=== PATIENT | female | born 1960 | race Caucasian/White ===

== ENCOUNTER 2020-02-26 14:52 | Emergency (ER) | payer SELFPAY ==
--- NOTE | 2020-02-26 15:06 | ER Document Report ---
ED Medical Screen (RME) - General Chief Complaint: Insect Bite Stated Complaint: INSECT BITE Time Seen by Provider: 02/26/20 15:00 Mode of Arrival: Ambulatory Information source: Patient Notes: Patient presents complaining of right ankle swelling for the past month. Patient states that she has had some discomfort to the lower leg that radiates to the medial right thigh. Patient denies any injury or fever. Patient does not go to a doctor regularly. I have greeted and performed a rapid initial assessment of this patient. A comprehensive ED assessment and evaluation of the patient, analysis of test results and completion of the medical decision making process will be conducted by additional ED providers. TRAVEL OUTSIDE OF THE [place] IN LAST 30 DAYS: No - Related Data Allergies/Adverse Reactions: Penicillins Allergy (Verified 07/19/15 08:40) Past Medical History Pulmonary Medical History: Reports: Hx Asthma, Hx COPD Traumatic Medical History: Reports: Hx Fractures - right foot Past Surgical History: Reports: Hx Gynecologic Surgery - vuvarectomy with reconstruction 10 years ago, Hx Orthopedic Surgery, Hx Tubal Ligation - Immunizations Immunizations up to date: Yes Hx Diphtheria, Pertussis, Tetanus Vaccination: Yes Physical Exam - Vital signs Vitals: Temp Pulse Resp BP Pulse Ox 98.3 F 82 16 153/66 H 100 02/26/20 14:58 02/26/20 14:58 02/26/20 14:58 02/26/20 14:58 02/26/20 14:58 - Extremities General lower extremity: Tender, Edema - Right ankle swelling Course - Vital Signs Vital signs: Temp Pulse Resp BP Pulse Ox 98.3 F 82 16 153/66 H 100 02/26/20 14:58 02/26/20 14:58 02/26/20 14:58 02/26/20 14:58 02/26/20 14:58
[2020-02-26 15:29] LABS: ABSOLUTE BASOPHILS # (AUTO) 0.1 10^3/uL (0.0-0.2); ABSOLUTE EOSINOPHILS # (AUTO) 0.2 10^3/uL (0.0-0.6); ABSOLUTE LYMPHOCYTES (AUTO) 3.8 10^3/uL (0.5-4.7); ABSOLUTE MONOCYTES (AUTO) 1.1 10^3/uL (0.1-1.4); ABSOLUTE NEUT (AUTO) 6.1 10^3/uL (1.7-8.2); BASOPHILS % (AUTO) 0.7 % (0-2); HEMATOCRIT 44.2 % (36.0-47.0); LYMPHOCYTES % (AUTO) 33.8 % (13-45); MEAN CORPUSCULAR HGB CONC 33.9 g/dL (32.0-36.0); MEAN CORPUSCULAR VOLUME 86 fl (80-97); MONOCYTES % (AUTO) 9.4 % (3-13); PLATELET COUNT 252 10^3/uL (150-450); RED BLOOD COUNT 5.16 10^6/uL (3.72-5.28); RED CELL DISTRIBUTION WIDTH 14.4 % (11.5-14.0); SEGMENTED NEUTROPHILS % (AUTO) 54.1 % (42-78); TOTAL CELLS COUNTED % (AUTO) 100 %; WHITE BLOOD COUNT 11.3 10^3/uL (4.0-10.5)
[2020-02-26 15:38] LABS: ALBUMIN 4.5 g/dL (3.5-5.0); ALKALINE PHOSPHATASE 75 U/L (38-126); ANION GAP 10 (5-19); ASPARTATE AMINO TRANSFERASE 22 U/L (14-36); BILIRUBIN,DIRECT 0.4 mg/dL (0.0-0.4); BILIRUBIN,TOTAL 0.4 mg/dL (0.2-1.3); BLOOD UREA NITROGEN 19 mg/dL (7-20); CALCIUM 9.5 mg/dL (8.4-10.2); CARBON DIOXIDE 27 mmol/L (22-30); CHLORIDE 104 mmol/L (98-107); GLUCOSE 101 mg/dL (75-110); POTASSIUM 4.1 mmol/L (3.6-5.0); TOTAL PROTEIN 7.5 g/dL (6.3-8.2)
--- NOTE | 2020-02-26 15:42 | RADIOLOGY REPORT (SQ) ---
EXAM DESCRIPTION: FOOT RIGHT COMPLETE IMAGES COMPLETED DATE/TIME: 02/26/2020 3:20 pm REASON FOR STUDY: right ankle swelling, heel pain COMPARISON: None. NUMBER OF VIEWS: Three views. TECHNIQUE: AP, lateral and oblique without weight bearing radiographic images acquired of the right foot. LIMITATIONS: None. FINDINGS: MINERALIZATION: Normal. BONES: A curvilinear sclerotic line along the posterior calcaneus is present representing a stress fr acture. No worrisome bone lesions. No significant osteophytes. 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 JOINTS: No erosions. No machelle-articular osteopenia. No chondrocalcinosis. SOFT TISSUES: No swelling. No calcifications. OTHER: No other significant finding. IMPRESSION: Calcaneal stress fracture. TECHNICAL DOCUMENTATION: JOB ID: [id number] 2010 [employer]- All Rights Reserved Reading location - IP/workstation name: [email or web address]
--- NOTE | 2020-02-26 18:32 | RADIOLOGY REPORT (SQ) ---
EXAM DESCRIPTION: VENOUS UNILATERAL LOWER IMAGES COMPLETED DATE/TIME: 02/26/2020 6:10 pm REASON FOR STUDY: RLE pain, ankle swelling COMPARISON: None. TECHNIQUE: Dynamic and static holt scale and color images acquired of the right leg venous system. S elected spectral images acquired with additional compression and augmentation maneuvers. The contrala teral common femoral vein and saphenofemoral junction were also imaged. Images stored on PACS. LIMITATIONS: None. FINDINGS: COMMON FEMORAL: Normal phasicity, compression and augmentation. No visualized echogenic ma terial on holt scale. No defects on color images. FEMORAL: Normal compression and augmentation. No visualized echogenic material on holt scale. No defe cts on color images. POPLITEAL: Normal compression, augmentation. No visualized echogenic material on holt scale. No defec ts on color images. CALF VESSELS: Normal compression, augmentation. No visualized echogenic material on holt scale. No de fects on color images. GSV and SSV: Normal compression, augmentation. No visualized echogenic material on holt scale. No def ects on color images. ANY DEEP VENOUS INSUFFICIENCY: Not evaluated. ANY EVIDENCE OF POPLITEAL CYST: No. OTHER: No other significant finding. CONTRALATERAL COMMON FEMORAL VEIN AND SAPHENOFEMORAL JUNCTION: Normal phasicity, compression and augmentation. No visualized echogenic material on holt scale. No de fects on color images. IMPRESSION: NO EVIDENCE DVT OR SVT IN THE RIGHT LEG. TECHNICAL DOCUMENTATION: JOB ID: [id number] [address]- All Rights Reserved Reading location - IP/workstation name: [email or web address]
[2020-02-26] MEDS ORDERED: HYDROCODONE/ACETAMINOPHEN 5-325 MG (6 TAB/ER DISP) PO PRN (19:30)
--- NOTE | 2020-02-26 19:32 | ER Document Report ---
HPI - HPI Patient complains to provider of: foot pain/swelling Time Seen by Provider: 02/26/20 15:00 Onset/Duration: Persistent Quality of pain: Achy Pain Level: 1 Context: Patient presents complaining of right foot and ankle pain and swelling for the past month. Patient denies any injury. Patient states that the pain is starting to radiate into the lower calf. Patient denies any chest pain or shortness of breath. Associated Symptoms: Other. denies: Fever Exacerbated by: Movement, Walking Relieved by: Denies Similar symptoms previously: No Recently seen / treated by doctor: No - ROS ROS below otherwise negative: Yes Systems Reviewed and Negative: Yes All other systems reviewed and negative - CONSTITUTIONAL Constitutional: DENIES: Fever, Chills - NEURO Neurology: DENIES: Weakness - CARDIOVASCULAR Cardiovascular: DENIES: Chest pain - RESPIRATORY Respiratory: DENIES: Trouble Breathing, Coughing - REPRODUCTIVE Reproductive: DENIES: : - MUSCULOSKELETAL Musculoskeletal: REPORTS: Extremity pain, Swelling - DERM Skin Color: Normal Skin Problems: None Past Medical History - General Information source: Patient - Social History Smoking Status: Current Every Day Smoker Chew tobacco use (# tins/day): No Frequency of alcohol use: None Drug Abuse: None Occupation: none Lives with: Family Family History: None, Reviewed & Not Pertinent Patient has homicidal ideation: No Pulmonary Medical History: Reports: Hx Asthma, Hx COPD Traumatic Medical History: Reports: Hx Fractures - right foot Past Surgical History: Reports: Hx Gynecologic Surgery - vuvarectomy with reconstruction 10 years ago, Hx Orthopedic Surgery, Hx Tubal Ligation - Immunizations Immunizations up to date: Yes Hx Diphtheria, Pertussis, Tetanus Vaccination: Yes Vertical Provider Document - CONSTITUTIONAL Agree With Documented VS: Yes Exam Limitations: No Limitations General Appearance: WD/WN, No Apparent Distress - INFECTION CONTROL TRAVEL OUTSIDE OF THE [place] IN LAST 30 DAYS: No - HEENT HEENT: Atraumatic, Normocephalic - NECK Neck: Normal Inspection - RESPIRATORY Respiratory: No Respiratory Distress - CARDIOVASCULAR Pulses: Normal: Dorsalis pedis - BACK Back: Normal Inspection - MUSCULOSKELETAL/EXTREMETIES Musculoskeletal/Extremeties: MAEW, Tender - Tenderness to the calcaneus of the right foot and right ankle area, 2+ edema to the right ankle, Edema. negative: Eccymosis - NEURO Level of Consciousness: Awake, Alert, Appropriate Motor/Sensory: No Motor Deficit - DERM Integumentary: Warm, Dry Course - Re-evaluation Re-evalutation: 02/26/20 19:29 Patient with a stress fracture noted on x-ray, Doppler negative for any DVT. Will immobilize and refer to orthopedics at this time. - Vital Signs Vital signs: Temp Pulse Resp BP Pulse Ox 98.3 F 82 16 153/66 H 100 02/26/20 14:58 02/26/20 14:58 02/26/20 14:58 02/26/20 14:58 02/26/20 14:58 - Laboratory Result Diagrams: 02/26/20 15:12 02/26/20 15:12 Laboratory results interpreted by me: 02/26/20 15:12 WBC 11.3 H RDW 14.4 H 02/26/20 19:29 Labs- All tests 24 hr 02/26/20 02/26/20 15:12 15:12 WBC 11.3 H RBC 5.16 Hgb 15.0 Hct 44.2 MCV 86 MCH 29.0 MCHC 33.9 RDW 14.4 H Plt Count 252 Lymph % (Auto) 33.8 [place] % (Auto) 9.4 Eos % (Auto) 2.0 Baso % (Auto) 0.7 Absolute Neuts (auto) 6.1 Absolute Lymphs (auto) 3.8 Absolute Monos (auto) 1.1 Absolute Eos (auto) 0.2 Absolute Basos (auto) 0.1 Seg Neutrophils % 54.1 Sodium 140.6 Potassium 4.1 Chloride 104 Carbon Dioxide 27 Anion Gap 10 BUN 19 Creatinine 0.74 Est GFR ( Amer) > 60 Est GFR (MDRD) Non-Af > 60 Glucose 101 Calcium 9.5 Total Bilirubin 0.4 Direct Bilirubin 0.4 Neonat Total Bilirubin Not Reportable Neonat Direct Bilirubin Not Reportable Neonat Indirect Bili Not Reportable AST 22 ALT 18 Alkaline Phosphatase 75 Total Protein 7.5 Albumin 4.5 - Diagnostic Test Radiology reviewed: Image reviewed, Reports reviewed Procedures - Immobilization Right Foot Pre-Proc Neuro Vasc Exam: Normal Immobilizer type: Short Leg Posterior Performed by: PCT Post-Proc Neuro Vasc Exam: Normal Alignment checked and good: Yes Discharge - Discharge Clinical Impression: Swelling of right foot Stress fracture of calcaneus Qualifiers: Encounter type: initial encounter Laterality: right Qualified Code(s): M84.374A - Stress fracture, right foot, initial encounter for fracture Condition: Stable Disposition: HOME, SELF-CARE Instructions: Use of Crutches ([facility]), Fracture ([facility]), Splint Precautions ([facility]) Additional Instructions: Return immediately for any new or worsening symptoms Followup with your primary care provider, call tomorrow to make a followup appointment Follow-up with orthopedics, call tomorrow to make a follow-up appointment Prescriptions: Folding Walker 1 unit .ROUTE ASDIR PRN #1 PRN Reason: Naproxen [Naprosyn 250 Nmg Tablet] 1 tab PO BID #14 tablet Referrals: [facility]) [Provider Group] - Follow up tomorrow
[2020-02-26 20:05] VITALS: BP 145/71
== END 2020-02-26 20:25 | disposition home or self-care (01) ==
LOC: ER 14:52
DX: M84.374A Stress fracture, right foot, initial encounter for fracture (principal); X58.XXXA Exposure to other specified factors, initial encounter; F17.200 Nicotine dependence, unspecified, uncomplicated; J44.9 Chronic obstructive pulmonary disease, unspecified
CPT/HCPCS: 36415; 80053; 85025; 93971; 99285